=== PATIENT | female | born 1990 | race Hispanic/Latino ===

== ENCOUNTER 2019-06-08 09:45 | Emergency (ER) | payer SELFPAY ==
--- NOTE | 2019-06-08 10:02 | NUR ---
PT STATED SHE WAS SENT HERE BY [facility] FOR A NEEDLE STICK, I EXPLAINED TO PT PER LACHELLE THAT WE COULD SEE HER AND DO A BLOOD DRAW BUT THERE WOULD BE NO FOLLOW UP SINCE WE ARE AN ER, PT STATED SHE WAS GOING TO RETURN TO HER JOB AND SPEAK TO [employer]. PT STATED SHE WANTED IT DONE PROPERLY WITH FOLLOW [employer] IN PLACE.
== END 2019-06-08 10:04 | disposition short-term general hospital (02) ==
LOC: FSED 09:45
DX: Z53.21 Procedure and treatment not carried out due to patient leaving prior to being seen by health care provider (principal)

== ENCOUNTER 2019-06-08 10:27 | Emergency (ER) | payer SELFPAY ==
[~2019-06-08] VITALS: Ht 154.9 cm; Wt 74.8 kg
== END 2019-06-08 11:05 | disposition left against medical advice (07) ==
LOC: ER 10:27
DX: S61.241A Puncture wound with foreign body of left index finger without damage to nail, initial encounter (principal); W46.1XXA Contact with contaminated hypodermic needle, initial encounter; Y93.F9 Activity, other caregiving; Y92.129 Unspecified place in nursing home as the place of occurrence of the external cause; Y99.0 Civilian activity done for income or pay